=== PATIENT | male | born 1955 ===

== ENCOUNTER 2024-01-04 10:33 | Outpatient (CLI) | payer OTHER ==
[2024-01-04] MEDS: ALBUTEROL 1 PUFF INH STA (12:05)
== END 2024-01-04 10:34 | disposition home or self-care (01) ==
LOC: RT 10:33
PROVIDERS: ATTEND Internal Medicine
DX: G47.33 Obstructive sleep apnea (adult) (pediatric) (principal); J44.9 Chronic obstructive pulmonary disease, unspecified
CPT/HCPCS: 94060; 94727; 94729